=== PATIENT | male | born 1970 | race Caucasian/White ===

== ENCOUNTER 2016-05-22 12:25 | Emergency (ER) ==
[2016-05-22 12:30] VITALS: BP 179/95; TEMP 98; BMI 34.9
--- NOTE | 2016-05-22 12:54 | ED.PDOC ---
General ED Provider: Dr. AAYUSH MONCADA JR Chief Complaint: Shortness of Air Stated Complaint: patient states that while he was doing the dishes this morning he became short of breath. states he has a hx of anxiety. c/o cough prod. of clear-white phlegm. patient states he has been taking care of his terminal and wasn't sure if that wasn't causing anxiety. states yesterday he had an allergic reaction to stevia, states he broke out in rash to chest and was short of breath and lips were a little swollen.98.0 108 20 99% 179/95. states heart was pounding in his head. states he had to sit down because he felt like he was going to pass out.[ End ]better now, concerned anxious- has been anxious since colon surgery"hemorraged blood became very anemic" father at age 52 of MS, no current doctor Time Seen by Physician: 13:18 Mode of Arrival: Walk-In Information Source: Patient Exam Limitations: No limitations Primary Care Provider: MIGUELITO LOJA-[facility] Nursing and Triage Documentation Reviewed and Agree: No Review of Systems - Review Of Systems Constitutional: Reports: Malaise Eyes: Reports: No symptoms Ears, Nose, Mouth, Throat: Reports: No symptoms, Throat swelling Respiratory: Reports: Short of air Cardiac: Reports: Palpitations GI: Reports: No symptoms : Reports: No symptoms Musculoskeletal: Reports: No symptoms Skin: Reports: No symptoms Neurological: Reports: No symptoms Endocrine: Reports: No symptoms Hematologic/Lymphatic: Reports: Anemia All Other Systems: Other Past Medical History - Past Medical History Previously Healthy: Yes Endocrine: Reports: None Cardiovascular: Reports: None Respiratory: Reports: None Hematological: Reports: None Gastrointestinal: Reports: Pancreatitis Genitourinary: Reports: Kidney stones Neuro/Psych: Reports: Anxiety Musculoskeletal: Reports: None Cancer: Reports: None - Surgical History General Surgical History: Reports: Cholecystectomy, Other (COLON POLYP REMOVAL - PREMALIGNANT) - Family History Family History: Reports: Other ( WITH STAGE FOUR LUNG CANCER), Unknown - Social History Smoking Status: Current every day smoker, Light tobacco smoker Hx Substance Use: No Alcohol Screening: None Physical Exam - Physical Exam Appearance: Well-appearing Eyes: KARLA, EOMI, Conjunctiva clear ENT: Ears normal, Nose normal, Oropharynx normal Neck: Supple Respiratory: Airway patent, Breath sounds diminished, Respirations nonlabored Cardiovascular: RRR, Pulses normal, No rub, No murmur GI/: Soft, Nontender, No masses, Bowel sounds normal, No Organomegaly Musculoskeletal: Normal strength, ROM intact, No edema, No calf tenderness Skin: Warm, Dry, Normal color Neurological: Sensation intact, Motor intact, Reflexes intact, Cranial nerves intact, Alert, Oriented Psychiatric: Affect appropriate, Mood appropriate Interpretation - Radiology Interpretation Radiology Interpretation By: Radiologist Radiology Results: Negative Exam Interpreted: CXR - EKG Interpretation Time of EKG #1: 13:20 Rate: Normal Rhythm: Sinus Darling: Right ST Segment: Normal Critical Care Note - Critical Care Note Total Time (mins): 0 Course - Course Orders, Labs, Meds: Orders Category Date Time Status EKG-(ED ONLY) Stat CARDIO 05/22/16 13:13 Completed CHEST, 2 VIEWS PA & LAT Stat RADS 05/22/16 13:14 Completed Vital Signs: Temp Pulse Resp BP Pulse Ox 05/22/16 12:26 98.0 F 108 H 20 179/95 H 99 Departure - Departure Time of Disposition: 14:07 Disposition: HOME SELF-CARE Discharge Problem: Palpitations Instructions: Palpitations (ED) Condition: Good Pt referred to PMD for follow-up: Yes Additional Instructions: may follow up with [facility] recommend recheck one to two weeks may refer to cardiology evaluation if appropriate given family history may use Ativan as prescribed recommend consider change to clonopin and regular counselling if episodes recur Allergies/Adverse Reactions: Allergies bacitracin [From Neosporin ([id number])] Adverse Reaction (Verified 12/21/15 11:16) bacitracin zinc [From Neosporin (coj-xet-airzg)] Adverse Reaction (Verified 11:16) neomycin sulfate [From Neosporin (igz-jsd-vgayc)] Adverse Reaction (Verified 11:16) polymyxin B [From Neosporin (evi-azu-arzoq)] Adverse Reaction (Verified 11:16) Sulfa (Sulfonamide Antibiotics) Adverse Reaction (Verified 12/21/15 11:16) stevia Adverse Reaction (Uncoded 05/22/16 12:30) Home Medications: Ambulatory Orders Lorazepam [Ativan] 0.5 mg PO BID PRN 11/29/12
--- NOTE | 2016-05-22 14:00 | DI ---
EXAM: Chest two view, frontal and lateral views. HISTORY: Palpitations. Shortness of breath. COMPARISON: 01/31/2014. FINDINGS: The heart size is normal. There is no pulmonary vascular congestion. The lungs are beverley r. No pleural effusion or pneumothorax is seen. No acute osseous abnormality identified. Degenera tive changes present in the spine. Clips seen in the upper abdomen. Since the prior study, there zhang s been no significant interval change. IMPRESSION: No acute cardiopulmonary process.
== END 2016-05-22 14:24 | disposition home or self-care (01) ==
LOC: ED 12:25
DX: R00.2 Palpitations (principal); R06.02 Shortness of breath; R05 Cough; F17.210 Nicotine dependence, cigarettes, uncomplicated; F41.9 Anxiety disorder, unspecified; Z79.899 Other long term (current) drug therapy; Z82.41 Family history of sudden cardiac death
CPT/HCPCS: 93005; 93010; 99283

== ENCOUNTER 2016-06-27 20:21 | Emergency (ER) ==
[2016-06-27 20:26] VITALS: TEMP 98.1; BMI 32.5
--- NOTE | 2016-06-27 20:38 | ED.PDOC ---
General ED Provider: Dr. MIGUELITO LOJA Chief Complaint: Back Pain Stated Complaint: Been hurting in the left lower back, and pain going into left grain, shooting type. has h/i kidney stones Time Seen by Physician: 20:36 Mode of Arrival: Walk-In Information Source: Patient Primary Care Provider: MIGUELITO LOJA-[facility] Nursing and Triage Documentation Reviewed and Agree: Yes GI Complaint Exam - Abdominal Pain Complaint/Exam Onset: Gradual Symptoms Are: Still present Timing: Constant Initial Severity: Moderate Current Severity: Moderate Location of Pain: Discrete Radiates To: Reports: Back, Flank Character: Reports: Dull, Aching, Throbbing Aggravating: Reports: None Alleviating: Reports: None Associated Signs and Symptoms: Reports: Nausea. Denies: Diaphoresis, Fever, Cough, Chest pain, Dizziness, Back pain, Constipation, Blood in stool, Dysuria, Urinary frequency, Decreased urine output, Decreased appetite, Discharge, Vomiting, Diarrhea, Decreased activity Related History: Reports: Similar episode AAA Risk Factors: Reports: None Cardiac Risk Factors: Reports: None Testicular Torsion Risk Factors: Reports: None Surgical Obstruction Risk Factors: Reports: None Related Surgical History: Reports: None Abdominal Findings: Absent: Pulsatile mass, Abdominal distention, Unequal femoral pulses Differential Diagnoses: Renal Colic Review of Systems - Review Of Systems Constitutional: Reports: Malaise, Weakness Eyes: Reports: No symptoms Ears, Nose, Mouth, Throat: Reports: No symptoms Respiratory: Reports: No symptoms Cardiac: Reports: No symptoms GI: Reports: Nausea : Reports: No symptoms Musculoskeletal: Reports: No symptoms Skin: Reports: No symptoms Neurological: Reports: No symptoms Endocrine: Reports: No symptoms Hematologic/Lymphatic: Reports: No symptoms All Other Systems: Reviewed and Negative Past Medical History - Past Medical History Previously Healthy: Yes Endocrine: Reports: None Cardiovascular: Reports: None Respiratory: Reports: None Hematological: Reports: None Gastrointestinal: Reports: Pancreatitis Genitourinary: Reports: Kidney stones Neuro/Psych: Reports: Anxiety Musculoskeletal: Reports: None Cancer: Reports: None Other Pertinent Past Medical History: GB, COLON POLYP REMOVAL hx of pancreatitis ks anx - Surgical History General Surgical History: Reports: Cholecystectomy, Other (COLON POLYP REMOVAL - PREMALIGNANT) - Family History Family History: Reports: Other ( WITH STAGE FOUR LUNG CANCER), Unknown - Social History Smoking Status: Current every day smoker, Light tobacco smoker Smoking Cessation Counseling Time: > 3 min - 10 min Hx Substance Use: No Alcohol Screening: None - Immunizations Tetanus Shot up to Date: Yes Physical Exam - Physical Exam Appearance: Ill-appearing, Obese Pain Distress: Moderate Eyes: KARLA, EOMI, Conjunctiva clear ENT: Ears normal, Nose normal, Oropharynx normal Respiratory: Airway patent, Breath sounds clear, Breath sounds equal, Respirations nonlabored Cardiovascular: RRR, Pulses normal, No rub, No murmur GI/: Soft, Tender (left flank) Musculoskeletal: Normal strength, ROM intact, No edema, No calf tenderness Skin: Warm, Dry, Normal color Neurological: Sensation intact, Motor intact, Reflexes intact, Cranial nerves intact, Alert, Oriented Psychiatric: Affect appropriate, Mood appropriate Interpretation - Radiology Interpretation Radiology Interpretation By: Radiologist Radiology Results: Negative Exam Interpreted: CT Scan Critical Care Note - Critical Care Note Total Time (mins): 0 Course - Course Hematology/Chemistry: 06/27/16 20:48 Orders, Labs, Meds: Lab Review 06/27/16 06/27/16 20:36 20:48 WBC 9.52 RBC 5.75 Hgb 17.3 Hct 50.2 MCV 87.3 MCH 30.1 MCHC 34.5 RDW Coeff of Luis M 13.3 Plt Count 190 Immature Gran % (Auto) 0.3 Neut % (Auto) 65.4 Lymph % (Auto) 24.7 [place] % (Auto) 5.9 Eos % (Auto) 3.2 Baso % (Auto) 0.5 Immature Gran # (Auto) 0.0 Neut # 6.2 Lymph # 2.4 [place] # 0.6 Eos # 0.3 Baso # 0.1 Urine Color Yellow Urine Clarity Clear Urine pH 5.5 Ur Specific [place] 1.025 Urine Protein Negative Urine Glucose (UA) Negative Urine Ketones 2+ Urine Blood Negative Urine Nitrite Negative Urine Bilirubin 1+ Urine Urobilinogen 0.2 Ur Leukocyte Esterase Negative Orders Category Date Time Status CBC W/ AUTO DIFF Stat LAB 06/27/16 20:48 Completed COMPREHENSIVE METABOLIC PANEL Stat LAB 06/27/16 20:48 Received URINALYSIS C & S IF INDICATED Stat LAB 06/27/16 20:[address] ABDOMEN/PELVIS WO CONTRAST Stat RADS 06/27/16 20:35 Completed Vital Signs: Temp Pulse Resp BP Pulse Ox 06/27/16 20:22 98.1 F 118 H 20 147/95 H 96 Departure - Departure Time of Disposition: 21:10 Disposition: HOME SELF-CARE Discharge Problem: Backache, Spasm of back muscles Instructions: Lower Back Exercises (ED) Condition: Stable Pt referred to PMD for follow-up: Yes Additional Instructions: REST HOT OR COLD PACK Prescriptions: Hydrocodone/Acetaminophen [Cecil 5-325 Tablet] 1 tab PO TID PRN #12 tablet PRN Reason: PAIN Allergies/Adverse Reactions: Allergies bacitracin [From Neosporin ([id number]-bfw-bwjpe)] Adverse Reaction (Verified 06/27/16 20:30) bacitracin zinc [From Neosporin (eyo-dxs-zvzyo)] Adverse Reaction (Verified 20:30) neomycin sulfate [From Neosporin (kqr-gvo-cwwbx)] Adverse Reaction (Verified 20:30) polymyxin B [From Neosporin (iqw-dff-cgyjq)] Adverse Reaction (Verified 20:30) Sulfa (Sulfonamide Antibiotics) Adverse Reaction (Verified 06/27/16 20:30) Home Medications: Ambulatory Orders Hydrocodone/Acetaminophen [Cecil 5-325 Tablet] 1 tab PO TID PRN #12 tablet 06/27 Disposition Discussed With: Patient
[2016-06-27 20:46] LABS: ADD URINE MICROSCOPIC NO; BILIRUBIN,URINE 1+ (NEGATIVE); KETONES,URINE 2+ (NEGATIVE); LEUKOCYTE ESTERASE ,URINE Negative (NEGATIVE); NITRITE,URINE Negative (NEGATIVE); PH,URINE 5.5 (5-9); PROTEIN,URINE Negative (NEGATIVE); URINE, BLOOD Negative (NEGATIVE)
[2016-06-27 20:51] LABS: BASOPHILS # (AUTO) 0.1 K/uL (0-0.2); BASOPHILS % (AUTO) 0.5 % (0.0-3.0); EOSINOPHILS # (AUTO) 0.3 K/ul (0.0-0.7); EOSINOPHILS % (AUTO) 3.2 % (0.0-7.0); HEMATOCRIT 50.2 % (42.0-52.0); HEMOGLOBIN 17.3 g/dl (14.0-18.0); IMMATURE GRANULOCYTE % (AUTO) 0.3 % (0.0-5.0); LYMPHOCYTES # (AUTO) 2.4 K/uL (0.60-3.4); LYMPHOCYTES % (AUTO) 24.7 (10.0-50.0); MEAN CORPUSCULAR HEMOGLOBIN 30.1 pg (27.0-31.0); MEAN CORPUSCULAR HGB CONC 34.5 (31.8-35.4); MEAN CORPUSCULAR VOLUME 87.3 fl (80.0-94.0); MONOCYTES # (AUTO) 0.6 K/uL (0.4-2.0); MONOCYTES % (AUTO) 5.9 (0-10); NEUTROPHILS # (AUTO) 6.2 K/ul (2.0-6.9); NEUTROPHILS % (AUTO) 65.4; PLATELET COUNT 190 10^3/uL (140-440); RED BLOOD COUNT 5.75 10^6/ul (4.70-6.10); WHITE BLOOD COUNT 9.52 K/ul (4.2-10.2)
--- NOTE | 2016-06-27 21:05 | CT ---
EXAM: CT abdomen pelvis without intravenous contrast 06/27/2016. Sagittal and coronal reformatted images obtained HISTORY: Left flank pain COMPARISON: 07/26/2013 FINDINGS: The liver shows no acute abnormality. Gallbladder has been removed. The adrenal glands and kidneys show no hydronephrosis. The spleen and pancreas show no acute abnorm ality. There is no bowel obstruction. Normal appendix. Unremarkable urinary bladder. No free air or free fluid. No acute osseous abnormality. IMPRESSION: 1. Status post cholecystectomy. 2. No urinary or bowel obstruction and normal appendix. 3. No acute inflammatory process identified within the limitation of a noncontrast enhanced examina tion.
[2016-06-27] MEDS ORDERED: TORADOL IM STA (21:08)
[2016-06-27 21:11] LABS: ALBUMIN 4.3 g/dL (3.4-5.0); ALBUMIN/GLOBULIN RATIO 1.54; ANION GAP 14.8; BILIRUBIN,TOTAL 0.51 mg/dL (0.00-1.20); BUN/CREATININE RATIO 23.45; CALCIUM 9.2 mg/dL (8.2-10.2); CREATININE 0.81 mg/dL (0.60-1.10); POTASSIUM 3.8 mmol/L (3.5-5.1); TOTAL PROTEIN 7.1 g/dL (6.4-8.2)
[2016-06-27 21:42] VITALS: BP 141/91
== END 2016-06-27 21:50 | disposition home or self-care (01) ==
LOC: ED 20:21
DX: M54.5 Low back pain (principal); M62.830 Muscle spasm of back; Z87.442 Personal history of urinary calculi; F17.210 Nicotine dependence, cigarettes, uncomplicated
CPT/HCPCS: 36415; 80053; 81001; 85025; 96372; 99283

== ENCOUNTER 2016-10-10 12:29 | Emergency (ER) ==
[2016-10-10 12:33] VITALS: BP 164/85; TEMP 99.2; BMI 29.8
[2016-10-10] MEDS ORDERED: DECADRON 4 MG/ML SDV IM STA (12:38)
--- NOTE | 2016-10-10 12:41 | ED.PDOC ---
General ED Provider: Dr. JANA FUCHS-ER Chief Complaint: Rash Stated Complaint: KEITH GOT HIVES--I SCRATCHED AND NOW ITS INFECTED Time Seen by Physician: 12:39 Mode of Arrival: Walk-In Information Source: Patient Exam Limitations: No limitations Primary Care Provider: MIGUELITO LOJA[facility] Nursing and Triage Documentation Reviewed and Agree: Yes Skin Complaint Exam - Skin Rash/Itching Complaint/Exam Onset/Duration: 2 days Symptoms Are: Still present Initial Severity: Mild Current Severity: Mild Location: left hand/wrist Potential Exposures: Reports: Unknown Aggravating: Reports: None Alleviating: Reports: None Associated Signs and Symptoms: Denies: Difficulty breathing, Fever, Chills Skin Findings: Present: Maculae, Pustules, Lesions Differential Diagnoses: Contact Dermatitis, Impetigo, Poison [place] Review of Systems - Review Of Systems Constitutional: Reports: No symptoms Eyes: Reports: No symptoms Ears, Nose, Mouth, Throat: Reports: No symptoms Respiratory: Reports: No symptoms Cardiac: Reports: No symptoms GI: Reports: No symptoms : Reports: No symptoms Musculoskeletal: Reports: No symptoms Skin: Reports: Rash Neurological: Reports: No symptoms Endocrine: Reports: No symptoms Hematologic/Lymphatic: Reports: No symptoms All Other Systems: Reviewed and Negative Past Medical History - Past Medical History Previously Healthy: Yes Endocrine: Reports: None Cardiovascular: Reports: None Respiratory: Reports: None Hematological: Reports: None Gastrointestinal: Reports: Pancreatitis Genitourinary: Reports: Kidney stones Neuro/Psych: Reports: Anxiety Musculoskeletal: Reports: None Cancer: Reports: None Other Pertinent Past Medical History: GB, COLON POLYP REMOVAL hx of pancreatitis ks anx - Surgical History General Surgical History: Reports: Cholecystectomy, Other (COLON POLYP REMOVAL - PREMALIGNANT) - Family History Family History: Reports: Other ( WITH STAGE FOUR LUNG CANCER), Unknown - Social History Smoking Status: Current every day smoker, Light tobacco smoker Hx Substance Use: No Alcohol Screening: None Lives: With family Physical Exam - Physical Exam Appearance: Well-appearing Pain Distress: Mild Eyes: KARLA, EOMI, Conjunctiva clear ENT: Ears normal, Nose normal, Oropharynx normal Neck: Supple Respiratory: Airway patent, Breath sounds clear, Breath sounds equal, Respirations nonlabored Cardiovascular: RRR, Pulses normal, No rub, No murmur GI/: Soft, Nontender, No masses, Bowel sounds normal, No Organomegaly Musculoskeletal: Normal strength, ROM intact, No edema, No calf tenderness Skin: Warm, Dry, Normal color Neurological: Sensation intact Psychiatric: Affect appropriate, Mood appropriate Critical Care Note - Critical Care Note Total Time (mins): 0 Course - Course Orders, Labs, Meds: Orders Category Date Time Status Dexamethasone 4 mg/ml Inj [Decadron 4 mg/ml Sdv] MEDS 10/10/16 12:38 Stat 8 mg IM ONCE STA Medications Generic Name Dose Route Start Last Admin Trade Name Norah PRN Reason Stop Dose Admin Dexamethasone Sodium Phosphate 8 mg 10/10/16 12:38 Decadron 4 Mg/Ml Sdv IM 10/10/16 12:39 ONCE STA Vital Signs: Temp Pulse Resp BP Pulse Ox 10/10/16 12:29 99.2 F 92 H 20 164/85 H 96 Departure - Departure Time of Disposition: 12:41 Disposition: HOME SELF-CARE Discharge Problem: Urticaria Cellulitis Qualifiers: Site of cellulitis: extremity Site of cellulitis of extremity: upper extremity Laterality: left Qualifier Code: (L03.114) Cellulitis of left upper limb Instructions: Cellulitis (ED) Condition: Good Pt referred to PMD for follow-up: Yes Additional Instructions: clindamycin 150mg tid x 7days--medrol dose pack(start tomorrow)--f/u wtih pcp if not better by tomorrow Allergies/Adverse Reactions: Allergies bacitracin [From Neosporin ([id number]-zqr-aczaw)] Adverse Reaction (Verified 10/10/16 12:35) bacitracin zinc [From Neosporin (fot-rdl-qqdgw)] Adverse Reaction (Verified 07/24 12:35) neomycin sulfate [From Neosporin (egc-pfr-neysr)] Adverse Reaction (Verified 07/24 12:35) polymyxin B [From Neosporin (nxi-tyv-yontw)] Adverse Reaction (Verified 12:35) Sulfa (Sulfonamide Antibiotics) Adverse Reaction (Verified 10/10/16 12:35) Home Medications: Ambulatory Orders 1 [No Reported Medications] 10/10/16 Disposition Discussed With: Patient
== END 2016-10-10 13:07 | disposition home or self-care (01) ==
LOC: ED 12:29
DX: L50.9 Urticaria, unspecified (principal); L03.114 Cellulitis of left upper limb; F17.210 Nicotine dependence, cigarettes, uncomplicated
CPT/HCPCS: 96372; 99282

== ENCOUNTER 2016-10-12 23:05 | Emergency (ER) ==
[2016-10-12 23:06] VITALS: BMI 29.8
[2016-10-12] MEDS ORDERED: CLARITIN PO STA (23:31)
[2016-10-12] MEDS ORDERED: SOLU-MEDROL 125 MG IM STA (23:31)
[2016-10-12] MEDS ORDERED: ZANTAC PO STA (23:31)
--- NOTE | 2016-10-12 23:34 | ED.PDOC ---
General ED Provider: Dr. SHIRA PAIZ Chief Complaint: Allergic Reaction Stated Complaint: Patient is a 46 year old male who was seen 2 days ago for rightdistal forearm and wrsit cellulits and was started on clindamycin which he has been taking for the past 2 days. Today he notice that he was developing rash on the penis and had a burning senstation on the face also felt a weired senstion on his body. States the cellulitis is improving. Time Seen by Physician: 23:25 Mode of Arrival: Walk-In Information Source: Patient Exam Limitations: No limitations Primary Care Provider: MIGUELITO GIBSON Seen Within Last 72 Hours for Same Complaint By: ED (2 days ago ) Nursing and Triage Documentation Reviewed and Agree: Yes Skin Complaint Exam - Skin Rash/Itching Complaint/Exam Onset/Duration: 1 day Symptoms Are: Still present Initial Severity: Mild Current Severity: Moderate Location: Face, Genitals Potential Exposures: Reports: Medicines (Clindamycin) Prior Treatment: none Aggravating: Reports: None Alleviating: Reports: None Associated Signs and Symptoms: Denies: Difficulty breathing, Fever, Chills Skin Findings: Present: Urticaria, Purpura Body Picture: 1 - Erythematous Rash 2 - Shaf of penis rash 3 - Burning sensation around eyes Differential Diagnoses: Allergic Reaction, Drug Rash Review of Systems - Review Of Systems Constitutional: Reports: No symptoms Eyes: Reports: No symptoms Ears, Nose, Mouth, Throat: Reports: No symptoms Respiratory: Reports: No symptoms Cardiac: Reports: No symptoms GI: Reports: No symptoms : Reports: No symptoms Musculoskeletal: Reports: No symptoms Skin: Reports: Rash Neurological: Reports: Anxiety Endocrine: Reports: No symptoms Hematologic/Lymphatic: Reports: No symptoms All Other Systems: Reviewed and Negative Past Medical History - Past Medical History Previously Healthy: Yes Endocrine: Reports: None Cardiovascular: Reports: None Respiratory: Reports: None Hematological: Reports: None Gastrointestinal: Reports: Pancreatitis Genitourinary: Reports: Kidney stones Neuro/Psych: Reports: Anxiety Musculoskeletal: Reports: None Cancer: Reports: None Other Pertinent Past Medical History: GB, COLON POLYP REMOVAL hx of pancreatitis ks anx - Surgical History General Surgical History: Reports: Cholecystectomy, Other (COLON POLYP REMOVAL - PREMALIGNANT) - Family History Family History: Reports: Other ( WITH STAGE FOUR LUNG CANCER), Unknown - Social History Smoking Status: Current every day smoker, Heavy tobacco smoker Hx Substance Use: No Alcohol Screening: None - Immunizations Tetanus Shot up to Date: (UNKNOWN) Physical Exam - Physical Exam Appearance: Well-appearing, No pain distress, Well-nourished Ill-appearing: Mild Pain Distress: Mild Eyes: KARLA, EOMI, Conjunctiva clear ENT: Ears normal, Nose normal, Oropharynx normal Neck: Supple Respiratory: Airway patent, Breath sounds clear, Breath sounds equal, Respirations nonlabored Cardiovascular: RRR, Pulses normal, No rub, No murmur GI/: Soft, Nontender, No masses, Bowel sounds normal, No Organomegaly Musculoskeletal: Normal strength, ROM intact, No edema, No calf tenderness Skin: Warm, Dry Neurological: Sensation intact, Motor intact, Reflexes intact, Cranial nerves intact, Alert, Oriented Psychiatric: Anxious Critical Care Note - Critical Care Note Total Time (mins): 0 Course - Course Orders, Labs, Meds: Orders Category Date Time Status Loratadine [Claritin] MEDS 10/12/16 23:31 Stat 10 mg PO ONCE STA Methylprednisolone Sod Succ/Pf [Solu-Medrol 125 mg] MEDS 10/12/16 23:31 Stat 125 mg IM ONCE STA Ranitidine HCl [Zantac] MEDS 10/12/16 23:31 Stat 300 mg PO ONCE STA Medications Generic Name Dose Route Start Last Admin Trade Name Freq PRN Reason Stop Dose Admin Loratadine 10 mg 10/12/16 23:31 Claritin PO 10/12/16 23:32 ONCE STA Methylprednisolone Sodium Succinate 125 mg 10/12/16 23:31 Solu-Medrol 125 Mg IM 10/12/16 23:32 ONCE STA Ranitidine HCl 300 mg 10/12/16 23:31 Zantac PO 10/12/16 23:32 ONCE STA Vital Signs: Temp Pulse Resp BP Pulse Ox 10/12/16 23:06 98.7 F 69 16 161/91 H 99 Departure - Departure Time of Disposition: 23:59 Disposition: HOME SELF-CARE Discharge Problem: Drug-induced skin rash Cellulitis Qualifiers: Site of cellulitis: extremity Site of cellulitis of extremity: upper extremity Laterality: right Qualifier Code: (L03.113) Cellulitis of right upper limb Instructions: Antibiotic Medication Allergy (ED), Cellulitis (ED) Condition: Stable Pt referred to PMD for follow-up: Yes Additional Instructions: STOP TAKING CLINDAMYCIN follow up with PCP In 3 days Take Medrol dose pack as prescribed take Keflex as prescribed Prescriptions: Cephalexin [Keflex] 500 mg PO Q8HR #30 capsule Methylprednisolone [Medrol Dosepak] 4 mg PO DIRECTED #1 pkg Allergies/Adverse Reactions: Allergies bacitracin [From Neosporin ([id number]-yhfql)] Adverse Reaction (Verified 10/12/16 23:14) bacitracin zinc [From Neosporin (epf-sji-ylzsy)] Adverse Reaction (Verified 09/23 23:14) clindamycin Adverse Reaction (Verified 10/12/16 23:43) itching/burning/blisters neomycin sulfate [From Neosporin (ovv-ssg-edoxu)] Adverse Reaction (Verified 09/23 23:14) polymyxin B [From Neosporin (dbz-prq-jvsgg)] Adverse Reaction (Verified 23:14) Sulfa (Sulfonamide Antibiotics) Adverse Reaction (Verified 10/12/16 23:14) Home Medications: Ambulatory Orders Cephalexin [Keflex] 500 mg PO Q8HR #30 capsule 10/12/16 Clindamycin HCl 150 mg PO TID 10/12/16 Lorazepam [Ativan] 0.5 mg PO DAILY PRN 10/12/16 Methylprednisolone [Medrol Dosepak] 4 mg PO DIRECTED #1 pkg 10/12/16 Disposition Discussed With: Patient, Family
[2016-10-13] VITALS: BP 136/82; TEMP 98.8
== END 2016-10-13 00:03 | disposition home or self-care (01) ==
LOC: ED 23:05
DX: L27.1 Localized skin eruption due to drugs and medicaments taken internally (principal); T36.8X5A Adverse effect of other systemic antibiotics, initial encounter; L03.113 Cellulitis of right upper limb; F17.210 Nicotine dependence, cigarettes, uncomplicated
CPT/HCPCS: 96372; 99282

== ENCOUNTER 2017-03-25 00:11 | Emergency (ER) ==
[2017-03-25 00:20] VITALS: TEMP 98.6; BMI 28.5
[2017-03-25] MEDS ORDERED: SODIUM CHLORIDE 1,000 ML IV STA (00:45)
[2017-03-25] MEDS ORDERED: ATIVAN IVP STA (00:46)
[2017-03-25] MEDS ORDERED: TOPROL XL PO STA (00:46)
[2017-03-25] MEDS ORDERED: LOPRESSOR IVP STA (00:46)
[2017-03-25 00:58] LABS: BASOPHILS # (AUTO) 0.1 K/uL (0-0.2); BASOPHILS % (AUTO) 0.5 % (0.0-3.0); EOSINOPHILS # (AUTO) 0.3 K/ul (0.0-0.7); EOSINOPHILS % (AUTO) 2.7 % (0.0-7.0); HEMATOCRIT 53.4 % (42.0-52.0); HEMOGLOBIN 17.9 g/dl (14.0-18.0); IMMATURE GRANULOCYTE % (AUTO) 0.3 % (0.0-5.0); LYMPHOCYTES # (AUTO) 2.3 K/uL (0.60-3.4); LYMPHOCYTES % (AUTO) 22.7 (10.0-50.0); MEAN CORPUSCULAR HGB CONC 33.5 (31.8-35.4); MEAN CORPUSCULAR VOLUME 89.6 fl (80.0-94.0); MONOCYTES # (AUTO) 0.6 K/uL (0.4-2.0); MONOCYTES % (AUTO) 6.2 (0-10); NEUTROPHILS # (AUTO) 6.7 K/ul (2.0-6.9); NEUTROPHILS % (AUTO) 67.6; PLATELET COUNT 206 10^3/uL (140-440); RED BLOOD COUNT 5.96 10^6/ul (4.70-6.10); WHITE BLOOD COUNT 9.97 K/ul (4.2-10.2)
[2017-03-25 01:27] LABS: CREATINE KINASE 81 U/L
[2017-03-25 01:37] LABS: ALBUMIN 4.3 g/dL (3.4-5.0); ALBUMIN/GLOBULIN RATIO 1.43; ANION GAP 16.1; BILIRUBIN,TOTAL 0.4 mg/dL (0.00-1.20); BUN/CREATININE RATIO 29.57; CALCIUM 9.6 mg/dL (8.2-10.2); CREATININE 0.71 mg/dL (0.60-1.10); POTASSIUM 4.1 mmol/L (3.5-5.1); TOTAL PROTEIN 7.3 g/dL (6.4-8.2)
[2017-03-25 02:07] VITALS: BP 138/81
--- NOTE | 2017-03-25 05:04 | ED.PDOC ---
General ED Provider: Dr. JANA FUCHS-ER Chief Complaint: Arrhythmia Stated Complaint: my heart is racing and the left side of my chest hurt Time Seen by Physician: 00:20 Mode of Arrival: Walk-In Information Source: Patient Exam Limitations: No limitations Primary Care Provider: MIGUELITO LOJA-[facility] Nursing and Triage Documentation Reviewed and Agree: Yes Cardiovascular Complaint Exam - Palpitations Complaint/Exam Onset/Duration: one hour Symptoms Are: Still present Timing: Constant Initial Severity: Mild Current Severity: Moderate Character: Reports: Fast, Pounding Aggravating: Reports: None Alleviating: Reports: None Associated Signs and Symptoms: Reports: Lightheadedness, Dizziness, Chest pain. Denies: Syncope, Shortness of breath, Diaphoresis, Nausea, Vomiting Thyroid Exam: Normal Quality Indicator For Non-Traumatic Chest Pain/Syncope: EKG Performed Review of Systems - Review Of Systems Constitutional: Reports: No symptoms Eyes: Reports: No symptoms Ears, Nose, Mouth, Throat: Reports: No symptoms Respiratory: Reports: No symptoms Cardiac: Reports: Chest pain, Lightheadedness, Palpitations GI: Reports: No symptoms : Reports: No symptoms Musculoskeletal: Reports: No symptoms Skin: Reports: No symptoms Neurological: Reports: No symptoms Endocrine: Reports: No symptoms Hematologic/Lymphatic: Reports: No symptoms All Other Systems: Reviewed and Negative Past Medical History - Past Medical History Previously Healthy: Yes Endocrine: Reports: None Cardiovascular: Reports: None Respiratory: Reports: None Hematological: Reports: None Gastrointestinal: Reports: Pancreatitis Genitourinary: Reports: Kidney stones Neuro/Psych: Reports: Anxiety Musculoskeletal: Reports: None Cancer: Reports: None Other Pertinent Past Medical History: GB, COLON POLYP REMOVAL hx of pancreatitis ks anx - Surgical History General Surgical History: Reports: Cholecystectomy, Other (COLON POLYP REMOVAL - PREMALIGNANT) - Family History Family History: Reports: Other ( WITH STAGE FOUR LUNG CANCER), Unknown - Social History Smoking Status: Current every day smoker, Heavy tobacco smoker Hx Substance Use: No Alcohol Screening: None - Immunizations Tetanus Shot up to Date: (UNKNOWN) Physical Exam - Physical Exam Appearance: Well-appearing, No pain distress, Well-nourished Eyes: KARLA ENT: Ears normal, Nose normal, Oropharynx normal Neck: Supple Respiratory: Airway patent, Breath sounds clear, Breath sounds equal, Respirations nonlabored Cardiovascular: Abnormal pulses GI/: Soft, Nontender, No masses, Bowel sounds normal, No Organomegaly Musculoskeletal: Normal strength, ROM intact, No edema, No calf tenderness Skin: Warm, Dry, Normal color Neurological: Sensation intact, Motor intact, Reflexes intact, Cranial nerves intact, Alert, Oriented Psychiatric: Affect appropriate, Mood appropriate, Anxious Re-Evaluation - Re-Evaluation Time of Re-Evaluation: 05:20 Status: Improved Vital Signs Stable: Yes Pain Level: 0 Appearance: NAD Lungs: Clear Skin: Warm and Dry Neuro: Alert and Oriented X3 CV: RRR Critical Care Note - Critical Care Note Total Time (mins): 0 Course - Course Hematology/Chemistry: 03/25/17 00:55 03/25/17 00:55 Orders, Labs, Meds: Lab Review 03/25/17 03/25/17 03/25/17 00:55 00:55 00:55 WBC 9.97 RBC 5.96 Hgb 17.9 Hct 53.4 H MCV 89.6 MCH 30.0 MCHC 33.5 RDW Coeff of Luis M 13.4 Plt Count 206 Immature Gran % (Auto) 0.3 Neut % (Auto) 67.6 Lymph % (Auto) 22.7 Schuyler % (Auto) 6.2 Eos % (Auto) 2.7 Baso % (Auto) 0.5 Immature Gran # (Auto) 0.0 Neut # 6.7 Lymph # 2.3 Schuyler # 0.6 Eos # 0.3 Baso # 0.1 Sodium 142 Potassium 4.1 Chloride 108 H Carbon Dioxide 22 Anion Gap 16.1 BUN 21 H Creatinine 0.71 Estimated GFR (MDRD) 119.00 BUN/Creatinine Ratio 29.57 Glucose 111 H Calcium 9.6 Total Bilirubin 0.40 AST 16 ALT 19 Alkaline Phosphatase 97 Total Creatine Kinase 81 Troponin I < 0.0100 Total Protein 7.3 Albumin 4.3 Globulin 3.0 Albumin/Globulin Ratio 1.43 TSH 0.922 Free T4 1.04 Orders Category Date Time Status EKG-(ED ONLY) Stat CARDIO 03/25/17 00:44 Completed EKG-(ED ONLY) Stat CARDIO 03/25/17 05:00 Completed Rapier Insertion Loom Fixer [ED FOUNDER AND CHIEF EXECUTIVE OFFICER APPLIED] .ONCE EMERGENCY 03/25/17 00:45 Active IV [ED IV/MEDIPORT/POWERPORT] .ONCE EMERGENCY 03/25/17 00:45 Active CBC W/ AUTO DIFF Stat LAB 03/25/17 00:55 Completed COMPREHENSIVE METABOLIC PANEL Stat LAB 03/25/17 00:55 Completed CREATINE KINASE Stat LAB 03/25/17 00:55 Completed FREE T4 (FREE THYROXINE) Stat LAB 03/25/17 00:55 Completed THYROID STIMULATING HORMONE Stat LAB 03/25/17 00:55 Completed TROPONIN I Stat LAB 03/25/17 00:55 Completed 0.9 % Sodium Chloride [Saline Flush] MEDS 03/25/17 00:45 Ordered 1 syr IVF PRN PRN Lorazepam Inj [Ativan] MEDS 03/25/17 00:46 Discontinued 1 mg IVP ONCE STA Metoprolol Succinate [Toprol Xl] MEDS 03/25/17 00:46 Discontinued 50 mg PO ONCE STA Metoprolol Tartrate [Lopressor] MEDS 03/25/17 00:46 Discontinued 5 mg IVP ONCE STA Sodium Chloride 0.9% [Sodium Chloride] 1,000 ml MEDS 03/25/17 00:45 Discontinued IV BOLUS Medications Generic Name Dose Route Start Last Admin Trade Name Freq PRN Reason Stop Dose Admin Sodium Chloride 1 syr 03/25/17 00:45 03/25/17 01:06 Saline Flush IVF 1 syr PRN PRN Administration To flush IV Discontinued Medications Generic Name Dose Route Start Last Admin Trade Name Freq PRN Reason Stop Dose Admin Sodium Chloride 1,000 mls @ 1,000 mls/hr 03/25/17 00:45 03/25/17 00:59 Sodium Chloride IV 03/25/17 01:44 1,000 mls/hr BOLUS STA Administration Lorazepam 1 mg 03/25/17 00:46 03/25/17 01:02 Ativan IVP 03/25/17 00:47 1 mg ONCE STA Administration Metoprolol Succinate 50 mg 03/25/17 00:46 03/25/17 00:57 Toprol Xl PO 03/25/17 00:47 50 mg ONCE STA Administration Metoprolol Tartrate 5 mg 03/25/17 00:46 03/25/17 01:04 Lopressor IVP 03/25/17 00:47 5 mg ONCE STA Administration i wanted mr farley to stay because of his chest pain but he declind-warned he could have underlying cad and be at risk for mi but he still declines testing Vital Signs: Temp Pulse Resp BP Pulse Ox 03/25/17 02:06 84 16 138/81 98 03/25/17 00:12 98.6 F 122 H 18 162/96 H 97 ASMITA Risk Score ASMITA Risk Score: Risk Score Odds of by 30D 0 0.1 (0.1-0.2) 1 0.3 (0.2-0.3) 2 0.4 (0.3-0.5) 3 0.7 (0.6-0.9) 4 1.2 (1.0-1.5) 5 2.2 (1.9-2.6) 6 3.0 (2.5-3.6) 7 4.8 (3.8-6.1) Departure - Departure Time of Disposition: 05:20 Disposition: AMA Discharge Problem: Dysthymia, Chest pain Instructions: Chest Pain (ED) Condition: Good Pt referred to PMD for follow-up: Yes Additional Instructions: rtrn prn Allergies/Adverse Reactions: Allergies bacitracin [From Neosporin ([id number])] Adverse Reaction (Verified 03/25/17 00:21) bacitracin zinc [From Neosporin ([id number]-[id number]-[id number])] Adverse Reaction (Verified 00:21) clindamycin Adverse Reaction (Verified 03/25/17 00:21) itching/burning/blisters neomycin sulfate [From Neosporin (mhu-hte-cnyxp)] Adverse Reaction (Verified 00:21) polymyxin B [From Neosporin (sun-iwm-rekwy)] Adverse Reaction (Verified 00:21) Sulfa (Sulfonamide Antibiotics) Adverse Reaction (Verified 03/25/17 00:21) BLISTERS Home Medications: Ambulatory Orders Lorazepam [Ativan] 0.5 mg PO DAILY PRN 10/12/16 Disposition Discussed With: Patient
== END 2017-03-25 05:29 | disposition left against medical advice (07) ==
LOC: ED 00:11
DX: F34.1 Dysthymic disorder (principal); R07.9 Chest pain, unspecified; R42 Dizziness and giddiness; F17.210 Nicotine dependence, cigarettes, uncomplicated; Z87.19 Personal history of other diseases of the digestive system
CPT/HCPCS: 36415; 80053; 82550; 84439; 84443; 84484; 85025; 93005; 93010; 96361; 96374; 96375; 99284

== ENCOUNTER 2017-04-10 03:36 | Emergency (ER) ==
[2017-04-10 03:36] VITALS: BMI 28.5
[2017-04-10] MEDS ORDERED: SODIUM CHLORIDE 1,000 ML IV STA (03:49)
[2017-04-10] MEDS ORDERED: ASPIRIN CHEWABLE PO STA (03:51)
[2017-04-10] MEDS ORDERED: ATIVAN IVP STA (03:51)
[2017-04-10] MEDS ORDERED: ATIVAN IM STA (04:12)
--- NOTE | 2017-04-10 05:13 | ED.PDOC ---
General ED Provider: Dr. JANA FUCHS-ER Chief Complaint: Chest Pain Stated Complaint: my heart was racing and then my chest hurts Time Seen by Physician: 03:40 Mode of Arrival: Walk-In Information Source: Patient Exam Limitations: No limitations Nursing and Triage Documentation Reviewed and Agree: Yes Reviewed sepsis parameters & appropriate labs ordered?: Yes System Inflammatory Response Syndrome: Not Applicable Sepsis Protocol: For patient's 13 years and over: Temp is 96.8 and below OR 101 and greater Pulse >90 BPM Resp >20/minute Acutely Altered Mental Status Are patient's symptoms suggestive of a new infection, such as: -Pneumonia -Skin, Soft Tissue -Endocarditis -UTI -Bone, Joint Infection -Implantable Device -Acute Abdominal Infection -Wound Infection -Meningitis -Blood Stream Catheter Infection -Unknown Cardiovascular Complaint Exam - Palpitations Complaint/Exam Onset/Duration: 30 min Symptoms Are: Still present Timing: Constant Initial Severity: Mild Current Severity: Mild Character: Reports: Fast, Pounding Aggravating: Reports: None Alleviating: Reports: None Associated Signs and Symptoms: Reports: Chest pain. Denies: Lightheadedness, Dizziness, Syncope, Shortness of breath, Diaphoresis, Nausea, Vomiting Thyroid Exam: Normal Differential Diagnoses: Cardiomyopathy, Mitral Valve Prolapse, Panic Disorder Quality Indicator For Non-Traumatic Chest Pain/Syncope: EKG Performed Review of Systems - Review Of Systems Constitutional: Reports: No symptoms Eyes: Reports: No symptoms Ears, Nose, Mouth, Throat: Reports: No symptoms Respiratory: Reports: No symptoms Cardiac: Reports: Chest pain, Palpitations GI: Reports: No symptoms : Reports: No symptoms Musculoskeletal: Reports: No symptoms Skin: Reports: No symptoms Neurological: Reports: No symptoms Endocrine: Reports: No symptoms Hematologic/Lymphatic: Reports: No symptoms All Other Systems: Reviewed and Negative Past Medical History - Past Medical History Previously Healthy: Yes Endocrine: Reports: None Cardiovascular: Reports: None Respiratory: Reports: None Hematological: Reports: None Gastrointestinal: Reports: Pancreatitis Genitourinary: Reports: Kidney stones Neuro/Psych: Reports: Anxiety Musculoskeletal: Reports: None Cancer: Reports: None Other Pertinent Past Medical History: GB, COLON POLYP REMOVAL hx of pancreatitis ks anx - Surgical History General Surgical History: Reports: Cholecystectomy, Other (COLON POLYP REMOVAL - PREMALIGNANT) - Family History Family History: Reports: Other ( WITH STAGE FOUR LUNG CANCER), Unknown - Social History Smoking Status: Current every day smoker, Heavy tobacco smoker Hx Substance Use: No Alcohol Screening: None Lives: With family - Immunizations Tetanus Shot up to Date: No (unsure) Physical Exam - Physical Exam Appearance: Well-appearing, No pain distress, Well-nourished Eyes: KARLA, EOMI, Conjunctiva clear ENT: Ears normal, Nose normal, Oropharynx normal Neck: Supple Respiratory: Airway patent, Breath sounds clear, Breath sounds equal, Respirations nonlabored Cardiovascular: Tachycardia GI/: Soft, Nontender, No masses, Bowel sounds normal, No Organomegaly Musculoskeletal: Normal strength, ROM intact, No edema, No calf tenderness Skin: Warm, Dry, Normal color Neurological: Sensation intact, Motor intact, Reflexes intact, Cranial nerves intact, Alert, Oriented Psychiatric: Affect appropriate Re-Evaluation - Re-Evaluation Time of Re-Evaluation: 05:16 Status: Improved Vital Signs Stable: Yes Pain Level: 0 Appearance: NAD Lungs: Clear Skin: Warm and Dry Neuro: Alert and Oriented X3 CV: RRR Physician Notification - Case Discussed Physician Notified: dr olivares Time of Notification: 05:17 Critical Care Note - Critical Care Note Total Time (mins): 0 Course - Course Hematology/Chemistry: 04/10/17 04:12 04/10/17 04:12 Orders, Labs, Meds: Lab Review 04/10/17 04/10/17 04/10/17 04:12 04:12 04:12 WBC 12.59 H RBC 5.88 Hgb 18.1 H Hct 51.9 MCV 88.3 MCH 30.8 MCHC 34.9 RDW Coeff of Luis M 13.4 Plt Count 213 Immature Gran % (Auto) 0.5 Neut % (Auto) 67.1 Lymph % (Auto) 23.8 Monona % (Auto) 5.2 Eos % (Auto) 2.9 Baso % (Auto) 0.5 Immature Gran # (Auto) 0.1 Neut # 8.4 H Lymph # 3.0 Monona # 0.7 Eos # 0.4 Baso # 0.1 D-Dimer (Manual) 187.87 Sodium 140 Potassium 3.8 Chloride 104 Carbon Dioxide 21 Anion Gap 18.8 BUN 24 H Creatinine 0.71 Estimated GFR (MDRD) 119.00 BUN/Creatinine Ratio 33.80 Glucose 103 H Calcium 9.7 Total Bilirubin 0.4 AST 25 ALT 22 Alkaline Phosphatase 105 Total Creatine Kinase 78 Troponin I < 0.0100 Total Protein 8.2 Albumin 4.5 Globulin 3.7 Albumin/Globulin Ratio 1.22 Amylase 55 Lipase 50 TSH 1.389 Free T4 1.05 Orders Category Date Time Status EKG-(ED ONLY) Stat CARDIO 04/10/17 03:47 Ordered Bench Worker [ED BUILDING SERVICE WORKER APPLIED] .ONCE EMERGENCY 04/10/17 03:48 Active IV [ED IV/MEDIPORT/POWERPORT] .ONCE EMERGENCY 04/10/17 03:49 Active AMYLASE Stat LAB 04/10/17 04:12 Completed CBC W/ AUTO DIFF Stat LAB 04/10/17 04:12 Completed COMPREHENSIVE METABOLIC PANEL Stat LAB 04/10/17 04:12 Completed CREATINE KINASE Stat LAB 04/10/17 04:12 Completed D-DIMER Stat LAB 04/10/17 04:12 Completed FREE T4 (FREE THYROXINE) Stat LAB 04/10/17 04:12 Completed LIPASE Stat LAB 04/10/17 04:12 Completed THYROID STIMULATING HORMONE Stat LAB 04/10/17 04:12 Completed TROPONIN I Stat LAB 04/10/17 04:12 Completed 0.9 % Sodium Chloride [Saline Flush] MEDS 04/10/17 03:49 Ordered 1 syr IVF PRN PRN Aspirin [Aspirin Chewable] MEDS 04/10/17 03:51 Discontinued 324 mg PO ONCE STA Lorazepam Inj [Ativan] MEDS 04/10/17 04:12 Discontinued 1 mg IM ONCE STA Sodium Chloride 0.9% [Sodium Chloride] 1,000 ml MEDS 04/10/17 03:49 Active IV 100 mls/hr CXR [CHEST, 1V AP ONLY] Stat RADS 04/10/17 05:10 Ordered Medications Generic Name Dose Route Start Last Admin Trade Name Freq PRN Reason Stop Dose Admin Sodium Chloride 1,000 mls @ 100 mls/hr 04/10/17 03:49 Sodium Chloride IV 04/10/17 13:48 .Q10H STA Sodium Chloride 1 syr 04/10/17 03:49 Saline Flush IVF PRN PRN To flush IV Discontinued Medications Generic Name Dose Route Start Last Admin Trade Name Freq PRN Reason Stop Dose Admin Aspirin 324 mg 04/10/17 03:51 04/10/17 04:09 Aspirin Chewable PO 04/10/17 03:52 324 mg ONCE STA Administration Lorazepam 1 mg 04/10/17 04:12 04/10/17 04:18 Ativan IM 04/10/17 04:13 1 mg ONCE STA Administration Vital Signs: Temp Pulse Resp BP Pulse Ox 04/10/17 03:39 98.5 F 145 H 20 147/96 H 97 ASMITA Risk Score ASMITA Risk Score: Risk Score Odds of by 30D 0 0.1 (0.1-0.2) 1 0.3 (0.2-0.3) 2 0.4 (0.3-0.5) 3 0.7 (0.6-0.9) 4 1.2 (1.0-1.5) 5 2.2 (1.9-2.6) 6 3.0 (2.5-3.6) 7 4.8 (3.8-6.1) Departure - Departure Time of Disposition: :17 Disposition: PLACED OBSERVATION Discharge Problem: Chest pain Instructions: Chest Pain (ED) Condition: Good Pt referred to PMD for follow-up: Yes Allergies/Adverse Reactions: Allergies bacitracin [From Neosporin ([id number]-thm-[id number])] Adverse Reaction (Verified 04/10/17 03:46) bacitracin zinc [From Neosporin (cvx-eit-vdkra)] Adverse Reaction (Verified 05/27 03:46) clindamycin Adverse Reaction (Verified 04/10/17 03:46) itching/burning/blisters neomycin sulfate [From Neosporin (qut-yov-xroaa)] Adverse Reaction (Verified 05/27 03:46) polymyxin B [From Neosporin (dpw-zei-fuorx)] Adverse Reaction (Verified 03:46) Sulfa (Sulfonamide Antibiotics) Adverse Reaction (Verified 04/10/17 03:46) BLISTERS Home Medications: Ambulatory Orders Lorazepam [Ativan] 0.5 mg PO DAILY PRN 10/12/16 Disposition Discussed With: Patient
[2017-04-10] MEDS ORDERED: ATIVAN PO PRN (05:20)
[2017-04-10] MEDS ORDERED: NITROSTAT SL PRN (05:21)
--- NOTE | 2017-04-10 07:14 | DI ---
EXAM: Chest one view, frontal view only. HISTORY: Chest pain. COMPARISON: 05/22/2016. FINDINGS: The heart size is normal. There is no pulmonary vascular congestion. The lungs are clear . No pleural effusion or pneumothorax is seen. No acute osseous abnormality is identified. Since t he prior study, there has been no significant interval change. IMPRESSION: No acute cardiopulmonary process.
[2017-04-10] MEDS ORDERED: LOVENOX SUBCUT SCH (09:00)
[2017-04-10 09:44] VITALS: BP 133/73; TEMP 97.6
== END 2017-04-10 10:14 | disposition left against medical advice (07) ==
LOC: ED 03:36
DX: R07.9 Chest pain, unspecified (principal); R00.2 Palpitations; F17.210 Nicotine dependence, cigarettes, uncomplicated
CPT/HCPCS: 36415; 80053; 82150; 82550; 83690; 84439; 84443; 84484; 85025; 85379; 93005; 93010; 96372; 99284

== ENCOUNTER 2017-05-30 00:36 | Emergency (ER) ==
[2017-05-30 00:48] VITALS: BP 147/84; TEMP 98.4; BMI 27.3
[2017-05-30] MEDS ORDERED: KEFLEX PO STA (00:53)
[2017-05-30] MEDS ORDERED: TORADOL IM STA (00:53)
--- NOTE | 2017-05-30 00:53 | ED.PDOC ---
General ED Provider: Dr. MIGUELITO LOJA Chief Complaint: Cellulitis Stated Complaint: had pimple on nose, when tried to burst, it became red, swollen. Time Seen by Physician: 00:51 Mode of Arrival: Walk-In Information Source: Patient Primary Care Provider: MIGUELITO LOJA-[facility] Nursing and Triage Documentation Reviewed and Agree: Yes Reviewed sepsis parameters & appropriate labs ordered?: No System Inflammatory Response Syndrome: Not Applicable Sepsis Protocol: For patient's 13 years and over: Temp is 96.8 and below OR 101 and greater Pulse >90 BPM Resp >20/minute Acutely Altered Mental Status Are patient's symptoms suggestive of a new infection, such as: -Pneumonia -Skin, Soft Tissue -Endocarditis -UTI -Bone, Joint Infection -Implantable Device -Acute Abdominal Infection -Wound Infection -Meningitis -Blood Stream Catheter Infection -Unknown Skin Complaint Exam - Skin/Soft Tissue Complaint/Exam Symptoms Are: Still present Timing: Constant Initial Severity: Moderate Character: Reports: Redness, Swelling, Raised, Painful Aggravating: Reports: None Alleviating: Reports: None Associated Signs and Symptoms: Reports: Tenderness, Red streaks. Denies: Fever , Chills, Itching, Drainage, Bruising, Joint swelling Related Surgical History: Reports: None Recent Exposure to Others w/Similar Symptoms: No Skin Findings: Present: Erythema Differential Diagnoses: Cellulitis Review of Systems - Review Of Systems Constitutional: Reports: No symptoms Eyes: Reports: No symptoms Ears, Nose, Mouth, Throat: Reports: No symptoms Respiratory: Reports: No symptoms Cardiac: Reports: No symptoms GI: Reports: No symptoms : Reports: No symptoms Musculoskeletal: Reports: No symptoms Skin: Reports: No symptoms Neurological: Reports: No symptoms Endocrine: Reports: No symptoms Hematologic/Lymphatic: Reports: No symptoms All Other Systems: Reviewed and Negative Past Medical History - Past Medical History Previously Healthy: Yes Endocrine: Reports: None Cardiovascular: Reports: None Respiratory: Reports: None Hematological: Reports: None Gastrointestinal: Reports: Pancreatitis Genitourinary: Reports: Kidney stones Neuro/Psych: Reports: Anxiety Musculoskeletal: Reports: None Cancer: Reports: None Other Pertinent Past Medical History: GB, COLON POLYP REMOVAL hx of pancreatitis ks anx - Surgical History General Surgical History: Reports: Cholecystectomy, Other (COLON POLYP REMOVAL - PREMALIGNANT) - Family History Family History: Reports: Other ( WITH STAGE FOUR LUNG CANCER), Unknown - Social History Smoking Status: Current every day smoker, Heavy tobacco smoker Hx Substance Use: No Alcohol Screening: None - Immunizations Tetanus Shot up to Date: Yes Physical Exam - Physical Exam Appearance: Well-appearing, No pain distress, Well-nourished Eyes: KARLA, EOMI, Conjunctiva clear ENT: Ears normal, Nose normal, Oropharynx normal Respiratory: Airway patent, Breath sounds clear, Breath sounds equal, Respirations nonlabored Cardiovascular: RRR, Pulses normal, No rub, No murmur GI/: Soft, Nontender, No masses, Bowel sounds normal, No Organomegaly Musculoskeletal: Normal strength, ROM intact, No edema, No calf tenderness Skin: Warm, Dry, Normal color Neurological: Sensation intact, Motor intact, Reflexes intact, Cranial nerves intact, Alert, Oriented Psychiatric: Affect appropriate, Mood appropriate Critical Care Note - Critical Care Note Total Time (mins): 15 Course - Course Vital Signs: Temp Pulse Resp BP Pulse Ox 05/30/17 00:39 98.4 F 98 H 20 147/84 H 96 Departure - Departure Time of Disposition: 00:52 Disposition: HOME SELF-CARE Discharge Problem: Cellulitis Instructions: Cellulitis (ED) Condition: Stable Pt referred to PMD for follow-up: Yes IPMP verified?: No Additional Instructions: skin hygiene f/u at [facility] Prescriptions: Cephalexin [Keflex] 500 mg PO Q12HR #14 capsule Allergies/Adverse Reactions: Allergies bacitracin [From Neosporin (oco-dhn-ipavn)] Adverse Reaction (Verified 04/10/17 03:46) bacitracin zinc [From Neosporin (szy-smr-racml)] Adverse Reaction (Verified 05/27 03:46) clindamycin Adverse Reaction (Verified 04/10/17 03:46) itching/burning/blisters neomycin sulfate [From Neosporin (ujm-wzn-xesup)] Adverse Reaction (Verified 05/27 03:46) polymyxin B [From Neosporin ([id number]-upe-fybdk)] Adverse Reaction (Verified 03:46) Sulfa (Sulfonamide Antibiotics) Adverse Reaction (Verified 04/10/17 03:46) BLISTERS Home Medications: Ambulatory Orders Lorazepam [Ativan] 0.5 mg PO DAILY PRN 10/12/16 Cephalexin [Keflex] 500 mg PO Q12HR #14 capsule 05/30/17 Disposition Discussed With: Patient, Family
== END 2017-05-30 01:20 | disposition home or self-care (01) ==
LOC: ED 00:36
DX: J34.0 Abscess, furuncle and carbuncle of nose (principal); F17.210 Nicotine dependence, cigarettes, uncomplicated
CPT/HCPCS: 96372; 99282

== ENCOUNTER 2017-11-19 16:39 | Emergency (ER) ==
[2017-11-19 16:42] VITALS: BP 125/84; TEMP 99.9; BMI 27.3
--- NOTE | 2017-11-19 17:06 | ED.PDOC ---
General ED Provider: Dr. JANA LILLY Chief Complaint: Fever Stated Complaint: Sore throat, dizziness and fever. Denies coughing of vomiting. Severe Lt Ear Pain. Time Seen by Physician: 17:00 Mode of Arrival: Walk-In Information Source: Patient Exam Limitations: No limitations Primary Care Provider: DANN RAI Nursing and Triage Documentation Reviewed and Agree: Yes Does patient meet sepsis criteria?: No If yes, has appropriate treatment been initiated?: No System Inflammatory Response Syndrome: Not Applicable Sepsis Protocol: For patient's 13 years and over: Temp is 96.8 and below OR 101 and greater Pulse >90 BPM Resp >20/minute Acutely Altered Mental Status Are patient's symptoms suggestive of a new infection, such as: -Pneumonia -Skin, Soft Tissue -Endocarditis -UTI -Bone, Joint Infection -Implantable Device -Acute Abdominal Infection -Wound Infection -Meningitis -Blood Stream Catheter Infection -Unknown EENT Complaint Exam - Ear Complaint/Exam Onset/Duration: 2 days Symptoms Are: Still present Timing: Constant Initial Severity: Moderate Current Severity: Severe Character: Reports: Sharp pain, Aching pain. Denies: Dizzy, Room spinning Aggravating: Reports: Position, Movement Alleviating: Reports: OTC Meds Associated Signs and Symptoms: Denies: Ear trauma, Ear swelling, Discharge, Fever, Hearing loss, Bleeding, Sore throat, Headache, URI symptoms, Foreign body sensation, Rash, Pain to external ear, Pain to external face Related History: Denies: Similar Episode, Seasonal allergies Ear Surgical History: None Vesicles to External Pinna: No Vesicles to Tragus: No TMJ Tenderness: None Mastoid Tenderness: None Tragal Tenderness: None External Canal: Normal Material in Canal: Absent: Cerumen, Cerumen impaction, Discharge, Blood, Foreign body Tympanic Membrane: Erythema, Bulging Differential Diagnoses: Otitis Media (Bilateral Lt > Rt) Review of Systems - Review Of Systems Constitutional: Reports: No symptoms Eyes: Reports: No symptoms Ears, Nose, Mouth, Throat: Reports: Ear pain, Throat pain Respiratory: Reports: No symptoms Cardiac: Reports: No symptoms GI: Reports: No symptoms : Reports: No symptoms Musculoskeletal: Reports: No symptoms Skin: Reports: No symptoms Neurological: Reports: No symptoms Endocrine: Reports: No symptoms Hematologic/Lymphatic: Reports: No symptoms All Other Systems: Reviewed and Negative Past Medical History - Past Medical History Previously Healthy: Yes Endocrine: Reports: None Cardiovascular: Reports: None Respiratory: Reports: None Hematological: Reports: None Gastrointestinal: Reports: Pancreatitis Genitourinary: Reports: Kidney stones Neuro/Psych: Reports: Anxiety Musculoskeletal: Reports: None Cancer: Reports: None Other Pertinent Past Medical History: GB, COLON POLYP REMOVAL hx of pancreatitis ks anx - Surgical History General Surgical History: Reports: Cholecystectomy, Other (COLON POLYP REMOVAL - PREMALIGNANT) - Family History Family History: Reports: Other ( WITH STAGE FOUR LUNG CANCER), Unknown - Social History Smoking Status: Current every day smoker, Heavy tobacco smoker Hx Substance Use: No Alcohol Screening: None - Immunizations Tetanus Shot up to Date: Yes Physical Exam - Physical Exam Appearance: Ill-appearing Ill-appearing: Moderate Pain Distress: Moderate Eyes: KARLA, EOMI ENT: Ears normal, Nose normal, Oropharynx normal Neck: Supple (Tender lt sub tonsillar) Respiratory: Airway patent, Breath sounds clear, Breath sounds equal, Respirations nonlabored Cardiovascular: RRR, Pulses normal, No rub, No murmur GI/: Soft, Nontender, No masses, Bowel sounds normal Musculoskeletal: Normal strength, ROM intact, No edema Skin: Warm, Dry, Normal color, Pale Neurological: Sensation intact, Motor intact, Alert Psychiatric: Affect appropriate, Mood appropriate Critical Care Note - Critical Care Note Total Time (mins): 0 Course - Course Hematology/Chemistry: 11/19/17 17:25 11/19/17 17:25 Vital Signs: Temp Pulse Resp BP Pulse Ox 11/19/17 16:40 99.9 F H 115 H 18 125/84 96 Departure - Departure Time of Disposition: 18:30 Disposition: HOME SELF-CARE Discharge Problem: Acute left otitis media Instructions: Ear Infection (ED) Condition: Good Pt referred to PMD for follow-up: Yes (1 week) IPMP verified?: No Additional Instructions: Take antibiotics as directed Tylenol for pain as needed see PCP in 1 week Prescriptions: Amoxicillin/Potassium Clav [Augmentin 875-125 Tablet] 1 each PO BID #20 tablet Allergies/Adverse Reactions: Allergies bacitracin [From Neosporin ([id number])] Adverse Reaction (Verified 11/19/17 16:42) bacitracin zinc [From Neosporin (bod-thv-qarol)] Adverse Reaction (Verified 16:42) clindamycin Adverse Reaction (Verified 11/19/17 16:42) itching/burning/blisters neomycin sulfate [From Neosporin ([id number]-sty-hlvqb)] Adverse Reaction (Verified 16:42) polymyxin B [From Neosporin (cij-[id number]-kebsn)] Adverse Reaction (Verified 16:42) Sulfa (Sulfonamide Antibiotics) Adverse Reaction (Verified 11/19/17 16:42) BLISTERS Home Medications: Ambulatory Orders Lorazepam [Ativan] 0.5 mg PO DAILY PRN 10/12/16 Amoxicillin/Potassium Clav [Augmentin 875125 Tablet] 1 each PO BID #20 tablet 11/19/17 Disposition Discussed With: Patient
== END 2017-11-19 18:40 | disposition home or self-care (01) ==
LOC: ED 16:39
DX: H66.92 Otitis media, unspecified, left ear (principal); F17.210 Nicotine dependence, cigarettes, uncomplicated
CPT/HCPCS: 36415; 80053; 81001; 83605; 84145; 85025; 87040; 87651; 99283

== ENCOUNTER 2018-07-20 23:44 | Emergency (ER) ==
[2018-07-20 23:55] VITALS: BP 134/89; TEMP 98.3; BMI 27.9
--- NOTE | 2018-07-21 00:42 | ED.PDOC ---
General ED Provider: Dr. JANA FUCHS-ER Chief Complaint: Sore Throat Stated Complaint: my sinuses are draining and mking my throat sore Time Seen by Physician: 00:40 Mode of Arrival: Walk-In Information Source: Patient Exam Limitations: No limitations Primary Care Provider: DANN RAI Nursing and Triage Documentation Reviewed and Agree: Yes Does patient meet sepsis criteria?: No System Inflammatory Response Syndrome: Not Applicable Sepsis Protocol: For patient's 13 years and over: Temp is 96.8 and below OR 101 and greater Pulse >90 BPM Resp >20/minute Acutely Altered Mental Status Are patient's symptoms suggestive of a new infection, such as: -Pneumonia -Skin, Soft Tissue -Endocarditis -UTI -Bone, Joint Infection -Implantable Device -Acute Abdominal Infection -Wound Infection -Meningitis -Blood Stream Catheter Infection -Unknown EENT Complaint Exam - Throat Complaint/Exam Onset/Duration: 4 days Symptoms Are: Still present Timimg: Intermittent Initial Severity: Mild Current Severity: Mild Alleviating: Reports: None Associated Signs and Symptoms: Reports: Sinus discomfort, Nasal congestion Uvula Midline: Yes Nery-tonsillar Fluctuence: No Scarlatinaform Rash Present: No Exanthem: Present: Pharynx Stridor Present: No Sinus Tenderness Present: Yes Tonsillar Hypertrophy Present: No Tonsillar Exudate Present: No Nery-tonsillar Swelling Present: No Adenopathy Present: No Splenomegaly Present: No Differential Diagnoses: Sinusitis Review of Systems - Review Of Systems Constitutional: Reports: No symptoms Eyes: Reports: No symptoms Ears, Nose, Mouth, Throat: Reports: Nose discharge, Throat pain Respiratory: Reports: No symptoms Cardiac: Reports: No symptoms GI: Reports: No symptoms : Reports: No symptoms Musculoskeletal: Reports: No symptoms Skin: Reports: No symptoms Neurological: Reports: No symptoms Endocrine: Reports: No symptoms Hematologic/Lymphatic: Reports: No symptoms All Other Systems: Reviewed and Negative Past Medical History - Past Medical History Previously Healthy: Yes Endocrine: Reports: None Cardiovascular: Reports: None Respiratory: Reports: None Hematological: Reports: None Gastrointestinal: Reports: Pancreatitis Genitourinary: Reports: Kidney stones Neuro/Psych: Reports: Anxiety Musculoskeletal: Reports: None Cancer: Reports: None Other Pertinent Past Medical History: GB, COLON POLYP REMOVAL hx of pancreatitis ks anx - Surgical History General Surgical History: Reports: Cholecystectomy, Other (COLON POLYP REMOVAL - PREMALIGNANT) - Family History Family History: Reports: Other ( WITH STAGE FOUR LUNG CANCER), Unknown - Social History Smoking Status: Current every day smoker, Light tobacco smoker Hx Substance Use: No Alcohol Screening: None - Immunizations Tetanus Shot up to Date: No (unsure) Physical Exam - Physical Exam Appearance: Well-appearing, No pain distress, Well-nourished Eyes: KARLA, EOMI, Conjunctiva clear ENT: Rhinorrhea Neck: Supple Respiratory: Airway patent, Breath sounds clear, Breath sounds equal, Respirations nonlabored Cardiovascular: RRR, Pulses normal, No rub, No murmur GI/: Soft, Nontender, No masses, Bowel sounds normal, No Organomegaly Musculoskeletal: Normal strength Skin: Warm, Dry, Normal color Neurological: Sensation intact, Motor intact, Reflexes intact, Cranial nerves intact, Alert, Oriented Psychiatric: Affect appropriate Critical Care Note - Critical Care Note Total Time (mins): 0 Course - Course Orders, Labs, Meds: Lab Review 07/20/18 23:59 Influ A Molecular Assay Negative by naat Influ B Molecular Assay Negative by naat Orders Category Date Time Status FLU A/B MOLECULAR Stat LAB 07/20/18 23:59 Completed MOLECULAR GROUP A STREP Stat LAB 07/20/18 23:59 Completed Vital Signs: Temp Pulse Resp BP Pulse Ox 07/20/18 23:49 98.3 F 99 H 20 134/89 97 Departure - Departure Time of Disposition: 00:41 Disposition: HOME SELF-CARE Discharge Problem: Sinusitis Qualifiers: Sinusitis location: unspecified location Chronicity: acute Recurrence: not specified as recurrent Qualified Code(s): J01.90 - Acute sinusitis, unspecified Instructions: Rhinosinusitis (ED) Condition: Good Pt referred to PMD for follow-up: Yes IPMP verified?: No Additional Instructions: augmentin 875mg bid x 10 days , medrol dose pack--salt water garlges---see pmd if not better in 4 days Allergies/Adverse Reactions: Allergies bacitracin [From Neosporin (ani-dyl-tzgha)] Adverse Reaction (Verified 07/20/18 23:48) bacitracin zinc [From Neosporin (qkv-hhi-srnrp)] Adverse Reaction (Verified 23:48) clindamycin Adverse Reaction (Verified 07/20/18 23:48) itching/burning/blisters neomycin sulfate [From Neosporin (mkv-jos-lnfvs)] Adverse Reaction (Verified 23:48) polymyxin B [From Neosporin (bcs-epg-hetrl)] Adverse Reaction (Verified 23:48) Sulfa (Sulfonamide Antibiotics) Adverse Reaction (Verified 07/20/18 23:48) BLISTERS Home Medications: Ambulatory Orders Lorazepam [Ativan] 0.5 mg PO DAILY PRN 10/12/16 Disposition Discussed With: Patient
== END 2018-07-21 00:50 | disposition home or self-care (01) ==
LOC: ED 23:44
DX: J02.9 Acute pharyngitis, unspecified (principal); R09.81 Nasal congestion; J01.90 Acute sinusitis, unspecified; Z72.0 Tobacco use
CPT/HCPCS: 87502; 87651; 99283

== ENCOUNTER 2018-09-12 18:05 | Emergency (ER) ==
[2018-09-12 18:07] VITALS: BP 133/90; TEMP 98.4; BMI 27.8
--- NOTE | 2018-09-12 18:11 | ED.PDOC ---
General ED Provider: Dr. JANA LILLY Chief Complaint: Shortness of Air Stated Complaint: "Heart racing" Feeling anxious/ Took ativan before arrival. Significant stress/ mother ill in hospital. from Lymphoma 2 yrs ago Time Seen by Physician: 18:10 Mode of Arrival: Walk-In Information Source: Patient Exam Limitations: No limitations Primary Care Provider: DANN RAI Nursing and Triage Documentation Reviewed and Agree: Yes Does patient meet sepsis criteria?: No If yes, has appropriate treatment been initiated?: Yes System Inflammatory Response Syndrome: Not Applicable Sepsis Protocol: For patient's 13 years and over: Temp is 96.8 and below OR 101 and greater Pulse >90 BPM Resp >20/minute Acutely Altered Mental Status Are patient's symptoms suggestive of a new infection, such as: -Pneumonia -Skin, Soft Tissue -Endocarditis -UTI -Bone, Joint Infection -Implantable Device -Acute Abdominal Infection -Wound Infection -Meningitis -Blood Stream Catheter Infection -Unknown Cardiovascular Complaint Exam - Palpitations Complaint/Exam Onset/Duration: 2 hrs Symptoms Are: Resolved Timing: Intermittent Initial Severity: Moderate Current Severity: None Character: Reports: Fast, Pounding Aggravating: Reports: Exertion Alleviating: Reports: Rest Associated Signs and Symptoms: Reports: Lightheadedness. Denies: Dizziness, Syncope, Chest pain, Shortness of breath, Diaphoresis, Nausea, Vomiting Related History: Similar episode Related Surgical History: Reports: None Cardiac Risk Factors: Reports: Hypertension, Family history Pulmonary Embolism Risk Factors: Reports: None Atrial Fibrillation Risk Factors: Reports: None Thyroid Exam: Normal Differential Diagnoses: Mitral Valve Prolapse, CAD, Panic Disorder, Hyperventilation Review of Systems - Review Of Systems Constitutional: Reports: No symptoms Eyes: Reports: No symptoms Ears, Nose, Mouth, Throat: Reports: No symptoms Respiratory: Reports: No symptoms Cardiac: Reports: Palpitations GI: Reports: No symptoms : Reports: No symptoms Musculoskeletal: Reports: No symptoms Skin: Reports: No symptoms Neurological: Reports: Emotional problems, Other (anxious.) Endocrine: Reports: No symptoms Hematologic/Lymphatic: Reports: No symptoms All Other Systems: Reviewed and Negative Past Medical History - Past Medical History Previously Healthy: Yes Endocrine: Reports: None Cardiovascular: Reports: None Respiratory: Reports: None Hematological: Reports: None Gastrointestinal: Reports: Pancreatitis Genitourinary: Reports: Kidney stones Neuro/Psych: Reports: Anxiety Musculoskeletal: Reports: None Cancer: Reports: None Other Pertinent Past Medical History: GB, COLON POLYP REMOVAL hx of pancreatitis ks anx - Surgical History General Surgical History: Reports: Cholecystectomy, Other (COLON POLYP REMOVAL - PREMALIGNANT) - Family History Family History: Reports: Other ( WITH STAGE FOUR LUNG CANCER), Unknown - Social History Smoking Status: Current every day smoker, Light tobacco smoker Hx Substance Use: No Alcohol Screening: None Physical Exam - Physical Exam Appearance: Well-appearing, No pain distress, Well-nourished Ill-appearing: None Pain Distress: None Eyes: KARLA, EOMI, Conjunctiva clear ENT: Ears normal, Nose normal, Oropharynx normal Respiratory: Airway patent, Breath sounds clear, Breath sounds equal, Respirations nonlabored Cardiovascular: RRR, Pulses normal, No rub, No murmur GI/: Soft, Nontender, No masses, Bowel sounds normal, No Organomegaly Musculoskeletal: Normal strength, ROM intact, No edema, No calf tenderness Skin: Warm, Dry, Normal color Neurological: Sensation intact, Motor intact, Reflexes intact, Cranial nerves intact, Alert, Oriented Psychiatric: Affect appropriate, Mood appropriate Interpretation - Radiology Interpretation Radiology Interpretation By: Radiologist Radiology Results: Negative (no acute cardiopulmonary abnormaltities) Exam Interpreted: CXR Re-Evaluation - Re-Evaluation Time of Re-Evaluation: 19:30 Status: Improved Vital Signs Stable: Yes Appearance: NAD Lungs: Clear Skin: Warm and Dry Neuro: Alert and Oriented X3 CV: RRR Critical Care Note - Critical Care Note Total Time (mins): 60 Course - Course Hematology/Chemistry: 09/12/18 18:32 09/12/18 18:32 Orders, Labs, Meds: Lab Review 09/12/18 09/12/18 09/12/18 18:32 18:32 18:32 WBC 7.88 RBC 5.15 Hgb 15.2 Hct 45.1 MCV 87.6 MCH 29.5 MCHC 33.7 RDW Coeff of Luis M 13.2 Plt Count 193 Immature Gran % (Auto) 0.3 Neut % (Auto) 57.4 Lymph % (Auto) 33.8 [place] % (Auto) 6.3 Eos % (Auto) 1.9 Baso % (Auto) 0.3 Immature Gran # (Auto) 0.0 Neut # (Auto) 4.5 Lymph # (Auto) 2.7 [place] # (Auto) 0.5 Eos # (Auto) 0.2 Baso # (Auto) 0.0 Sodium 138.5 Potassium 3.73 Chloride 102.6 Carbon Dioxide 22.6 Anion Gap 17.03 BUN 23.3 H Creatinine 0.63 Estimated GFR (MDRD) 136.00 BUN/Creatinine Ratio 36.98 Glucose 102.0 Calcium 9.81 Total Bilirubin 0.60 AST 32.9 ALT 49.4 Alkaline Phosphatase 71.2 Total Creatine Kinase 77.6 Troponin I < 0.012 Total Protein 7.28 Albumin 4.77 Globulin 2.51 Albumin/Globulin Ratio 1.90 Orders Category Date Time Status EKG-(ED ONLY) Stat CARDIO 09/12/18 18:12 Completed CBC W/ AUTO DIFF Stat LAB 09/12/18 18:32 Completed CMP [COMPREHENSIVE METABOLIC PANEL] Stat LAB 09/12/18 18:32 Completed CPK [CREATINE KINASE] Stat LAB 09/12/18 18:32 Completed TROPONIN I Stat LAB 09/12/18 18:32 Completed CHEST, 2 VIEWS PA & LAT Stat RADS 09/12/18 18:12 Completed Vital Signs: Temp Pulse Resp BP Pulse Ox 09/12/18 18:05 98.4 F 124 H 20 133/90 98 ASMITA Risk Score ASMITA Risk Score: Risk Score Odds of by 30D 0 0.1 (0.1-0.2) 1 0.3 (0.2-0.3) 2 0.4 (0.3-0.5) 3 0.7 (0.6-0.9) 4 1.2 (1.0-1.5) 5 2.2 (1.9-2.6) 6 3.0 (2.5-3.6) 7 4.8 (3.8-6.1) Departure - Departure Time of Disposition: 19:30 Disposition: HOME SELF-CARE Discharge Problem: Panic attack, Heart palpitations Instructions: Heart Palpitations (ED), Panic Attack (ED), Stress (ED), Anxiety (ED) Condition: Good Pt referred to PMD for follow-up: Yes ( within 1 week) IPMP verified?: No Additional Instructions: Follow up pcp relaxation techniques follow up prn Allergies/Adverse Reactions: Allergies bacitracin [From Neosporin ([id number]-tip-[id number])] Adverse Reaction (Verified 09/12/18 18:08) bacitracin zinc [From Neosporin ([id number]-plt-cqwjl)] Adverse Reaction (Verified 09/25 18:08) clindamycin Adverse Reaction (Verified 09/12/18 18:08) itching/burning/blisters neomycin sulfate [From Neosporin (ere-[id number]-rgwxo)] Adverse Reaction (Verified 09/25 18:08) polymyxin B [From Neosporin (vej-usb-dwwcc)] Adverse Reaction (Verified 18:08) Sulfa (Sulfonamide Antibiotics) Adverse Reaction (Verified 09/12/18 18:08) BLISTERS Home Medications: Ambulatory Orders Lorazepam [Ativan] 0.5 mg PO DAILY PRN 10/12/16 Disposition Discussed With: Patient
--- NOTE | 2018-09-12 19:26 | DI ---
EXAM: PA and lateral views of the chest HISTORY: Chest tightness COMPARISON: Chest x-ray 03/20/2018 and multiple priors FINDINGS: The cardiomediastinal silhouette is normal. There is no pneumothorax or pleural effusion. There is no consolidation, nodule or mass. The osseous structures demonstrate degenerative disease of the spine IMPRESSION: No acute cardiopulmonary process
== END 2018-09-12 20:29 | disposition home or self-care (01) ==
LOC: ED 18:05
DX: F41.0 Panic disorder [episodic paroxysmal anxiety] (principal); R00.2 Palpitations; R06.02 Shortness of breath; I10 Essential (primary) hypertension; F17.210 Nicotine dependence, cigarettes, uncomplicated
CPT/HCPCS: 36415; 80053; 82550; 84443; 84484; 85025; 93005; 93010; 99284